=== PATIENT | male | born 1965 | race Caucasian/White ===

== ENCOUNTER 2017-12-12 06:40 | Emergency (ER) | payer OTHER, SELFPAY ==
[2017-12-12 07:12] LABS: Hemoglobin 13.7 g/dL (14.0-18.0); MDiff Complete? YES; Manual Diff?? YES; Mean Corpuscular HGB CONC 33.2 g/dL (32.0-36.0); Mean Corpuscular Hemoglobin 31.6 pg (27.0-31.0); Mean Corpuscular Volume 95.3 fL (80.0-94.0); Mean Platelet Volume 10.5 fL (7.4-10.4); Platelet Count 106 thou/uL (130-400); RBC Distribution Width 11.3 % (11.5-14.5); Red Blood Cell (RBC) Count 4.36 mill/uL (4.70-6.10); White Blood Cell (WBC) Count 9.2 thou/uL (4.8-10.8)
[2017-12-12 07:13] LABS: Anisocytosis SLIGHT = 6-15 cells (100X) (0-5/hpf); Band 4 % (5-11); Eosinophils 1 % (0-10); Lymphocytes 67 % (21-51); Monocytes 1 % (0-10); Neutrophil 27 % (42-75); PLT Morphology Comment Appears Adequate
[2017-12-12 07:14] LABS: INR-International Normal Ratio 1.5; PTT 61.4 SEC (22.9-36.1); Prothrombin Time 18.4 SEC (12.0-14.7)
[2017-12-12 07:16] LABS: ALT (SGPT) 57 U/L (8-55); AST (SGOT) 74 U/L (5-34); Alkaline Phosphatase 89 U/L (40-150); Anion Gap 29 mmol/L (10-20); BUN (Urea Nitrogen) Less than 4 mg/dL (8.9-20.6); Bilirubin, Total 0.3 mg/dL (0.2-1.2); Calc. Creatinine Clearance 0 mL/min (70-130); Calcium 8.1 mg/dL (7.8-10.44); Carbon Dioxide 17 mmol/L (22-29); Chloride 105 mmol/L (98-107); Estimated GFR-MDRD 69; Globulin 2.1 g/dL (2.4-3.5); Protein, Total 5.1 g/dL (6.0-8.3); Sodium 148 mmol/L (136-145)
[2017-12-12 07:26] LABS: Glucose 366 mg/dL (70-105); Potassium 2.7 mmol/L (3.5-5.1)
[2017-12-12 07:30] LABS: Alcohol Less than 10 mg/dL (Less than 10)
[2017-12-12] MEDS ORDERED: EPINEPHrine 1 MG/10 ML Abboject SYRINGE ONE (07:30)
[2017-12-12] MEDS ORDERED: Sodium Chloride 0.9% 1,000 ML BAG ONE (07:30)
== END 2017-12-12 07:50 | disposition expired ==
LOC: MADERS 06:40
DX: I46.9 Cardiac arrest, cause unspecified (principal); F17.210 Nicotine dependence, cigarettes, uncomplicated
CPT/HCPCS: 80053; 80307; 85025; 85610; 85730; 99291; J0171; J0282; J7050